=== PATIENT | male | born 2000 | race Two or more races ===

== ENCOUNTER 2023-08-24 17:11 | Emergency (ER) | payer MEDICAID, OTHER ==
[~2023-08-24] VITALS: Ht 172.7 cm; Wt 82.0 kg
[2023-08-24] MEDS ORDERED: MAALOX PLUS or MAALOX 30 ML PO ONE (18:15)
[2023-08-24 18:24] LABS: Basophils # (auto) 0 10 ^3/uL (0-0.2); Basophils % (auto) 0.3 % (0.0-2.0); Eosinophils # (auto) 0 10 ^3/uL (0-0.8); Eosinophils % (auto) 0.4 % (0.0-7.0); Hemoglobin 15.7 g/dL (13.5-17.5); Lymphocytes # (auto) 1.6 10 ^3/uL (0.4-5.4); Lymphocytes % (auto) 16.9 % (10.0-50.0); Mean Corpuscular Hemoglobin 28.8 pg (28.0-32.0); Mean Corpuscular Hgb Conc. 34.2 g/dL (32.0-36.0); Mean Corpuscular Volume 84.3 fL (80.0-100.0); Monocytes # (auto) 0.8 10 ^3/uL (0-1.3); Monocytes % (auto) 8.3 % (0.0-12.0); Neutrophils % (auto) 74.1 % (37.0-80.0); Nucleated Red Blood Cells % 0.2 %; Red Blood Cells 5.45 10^6/uL (4.5-5.90); Red Cell Distribution Width 12.8 % (11.8-14.3); White Blood Cell 9.4 10^3/uL (4.4-10.8)
[2023-08-24 18:38] LABS: INR 1.15 (0.9-1.15); Partial Thromboplastin Time 29.9 SEC (24.5-34.5)
[2023-08-24 18:39] LABS: Alanine Aminotransferase 20 U/L (7-40); Alkaline Phosphatase 70 U/L (46-116); Anion Gap 10 (5-15); Aspartate Aminotransferase 16 U/L (13-40); Blood Urea Nitrogen 11 mg/dL (9-23); Calcium 9.7 mg/dL (8.7-10.4); Carbon Dioxide 26 mmol/L (20-30); Chloride 101 mmol/L (98-107); Glucose 103 mg/dL (74-106); Potassium 4.5 mmol/L (3.5-5.1); Sodium 137 mmol/L (136-145)
[2023-08-24 18:40] LABS: Bilirubin, Total 0.8 mg/dL (0.2-1.0); Total Protein 7.6 g/dL (5.7-8.2)
[2023-08-24] MEDS ORDERED: COLCHICINE 0.6 MG CAP PO ONE (18:45)
[2023-08-24] MEDS ORDERED: IBUPROFEN 400 MG TAB PO ONE (18:45)
[2023-08-24 19:22] VITALS: PULSE 77; RESP 15; TEMP 98.7; O2SAT 96
[2023-08-25 01:12] LABS: Urine Bacteria NONE SEEN /hpf (None Seen); Urine Blood Negative /uL (Negative); Urine Clarity Clear (Clear); Urine Color Yellow (Yellow); Urine Mucus FEW (None Seen); Urine Protein, UAD 1+ (Negative); Urine Specific Gravity 1.031 (1.001-1.035); Urine Urobilinogen >12.0 mg/dL (Negative); Urine WBC 6 /hpf (0 - 3); Urine pH 6.5 (5.0-8.0)
[2023-08-25 06:00] VITALS: BP 104/59; PULSE 54; RESP 14; O2SAT 100
== END 2023-08-25 06:12 | disposition left against medical advice (07) ==
LOC: ER 17:11
DX: I31.9 Disease of pericardium, unspecified (principal); R07.89 Other chest pain; Z79.899 Other long term (current) drug therapy
CPT/HCPCS: 36415; 71045; 80053; 81001; 83735; 84484; 85025; 85379; 85610; 85730; 93005